=== PATIENT | female | born 1985 | race Caucasian/White ===

== ENCOUNTER 2020-05-13 22:54 | Emergency (ER) | payer MEDICAID, OTHER ==
[~2020-05-13] VITALS: Ht 167.6 cm; Wt 93.0 kg
[2020-05-14 03:40] VITALS: BP 124/77
== END 2020-05-14 03:41 | disposition home or self-care (01) ==
LOC: ER 22:54
DX: F41.9 Anxiety disorder, unspecified (principal); M54.2 Cervicalgia; R42 Dizziness and giddiness; R53.1 Weakness; Z88.0 Allergy status to penicillin
CPT/HCPCS: 70450; 72125; 99285; J7030